=== PATIENT | male | born 1970 | race Two or more races ===

== ENCOUNTER 2022-12-29 15:58 | Emergency (ER) | payer BC ==
[~2022-12-29] VITALS: Ht 182.9 cm; Wt 110.2 kg
--- NOTE | 2022-12-29 16:09 | NUR ---
seen and examined by
[2022-12-29] MEDS ORDERED: CLIN300C12 PO (16:49)
[2022-12-29] MEDS ORDERED: IBUPROFEN 400 MG TABLET PO ONE (17:00)
--- NOTE | 2022-12-29 17:00 | NUR ---
Patient discharged to home in stable condition. Written and verbal after care instructions given. Patient verbalizes understanding of instructions. Stressed follow up or return to ER for worsening s/s.
[2022-12-29 17:01] VITALS: BP 120/73
== END 2022-12-29 17:03 | disposition home or self-care (01) ==
LOC: ER 15:58
DX: S60.511A Abrasion of right hand, initial encounter (principal); L08.9 Local infection of the skin and subcutaneous tissue, unspecified; W22.8XXA Striking against or struck by other objects, initial encounter; Y92.89 Other specified places as the place of occurrence of the external cause
CPT/HCPCS: A4663